=== PATIENT | female | born 1965 | race Hispanic/Latino ===

== ENCOUNTER 2016-12-03 07:40 | Emergency (ER) | payer BC ==
[2016-12-03 07:58] VITALS: BP 150/65; PULSE 104; RESP 16; TEMP 97; O2SAT 94
[2016-12-03] MEDS ORDERED: Albuterol-Ipratrop 3 mg / 0.5 (3 ml) UD INH STA (08:24)
[2016-12-03] MEDS ORDERED: Albuterol-Ipratrop 3 mg / 0.5 (3 ml) UD ONE (08:27)
--- NOTE | 2016-12-03 08:28 | ED PDOC ---
HPI: Psych/Substance Abuse Time Seen by Provider: 12/03/16 07:56 Chief Complaint (Nursing): Substance Abuse ED Caveat: Acuity of Condition History Per: Patient History/Exam Limitations: no limitations Onset/Duration Of Symptoms: Sudden Onset Current Symptoms Are (Timing): Gone Now Suicide/Self Injury Attempted (Context): None Modifying Factor(s): None Severity: Moderate Associated Symptoms: denies: Anger, Anxiety, Agitation, Depression, Paranoia, Suicidal Thoughts, Suicidal Plan Involuntary Hold By: None Additional History Per: Patient Additional Complaint(s): Pt brought in by ambulance accompanied by spouse from home. As per EMS, pt was found unresponsive at home. Patients spouse states he woke up and saw she was no responsive and called ambulance. As per report from EMS, patient had constricted pupils and was given 0.4mg narcan and became responsive. Patient arrives AOX3, with no complaints. Patient states she wants to go home. Pt denies Substance abuse. no acute resp. distress noted. pt states she is now having an asthma excaerbation with mild sob. pt admit to taking 2 percocets today for her back apin Against Medical Advice - AMA Patient Left Against Medical Advice: The patient declines admission to the hospital and wishes to leave the Emergency Department. This action is against my medical advice. This decision was made with informed refusal. The patient was told that admission to the hospital is necessary. Explanation of the reasons why were discussed. The risks of leaving were explained to the patient and include, but are not limited to, worsening of known or currently unknown conditions, permanent disability and from undiagnosed or untreated conditions. The patient has the capacity to make this informed decision and understands my explanation of the current medical problem and risks of leaving. The patient voluntarily accepts these risks and signed an AMA form documenting our conversation. The patient was given the opportunity to ask questions and reconsider. The patient was encouraged to return to the Emergency Department at any time for further care. Past Medical History Reviewed: Historical Data, Nursing Documentation, Vital Signs Vital Signs: Last Vital Signs Temp 97.0 F L 12/03/16 07:52 Pulse 104 H 12/03/16 07:52 Resp 16 12/03/16 07:52 BP 150/65 12/03/16 07:52 Pulse Ox 94 L 12/03/16 07:52 - Medical History PMH: Asthma - Family History Family History: States: Unknown Family Hx - Living Arrangements Living Arrangements: With Family - Social History Current smoker - smoking cessation education provided: No Drugs: Denies - Home Medications Home Medications: Ambulatory Orders Medication Instructions Recorded Albuterol HFA [Ventolin HFA 90 2 puff IH [id number] PRN #60 puff 12/03/16 mcg/actuation (8 g)] Methylprednisolone [Medrol Dose 4 mg PO DAILY #21 mg 12/03/16 Pack (21 tabs)] - Allergies Allergies/Adverse Reactions: Allergies Allergy/AdvReac Type Severity Reaction Status Date / Time No Known Allergies Allergy Verified 12/03/16 07:52 Review of Systems ROS Statement: Except As Marked, All Systems Reviewed And Found Negative Constitutional: Negative for: Fever, Chills Cardiovascular: Negative for: Chest Pain, Palpitations Respiratory: Positive for: Cough. Negative for: Shortness of Breath, Sputum Gastrointestinal: Negative for: Nausea, Vomiting, Abdominal Pain Genitourinary Female: Negative for: Dysuria Musculoskeletal: Negative for: Neck Pain Neurological: Negative for: Weakness, Numbness Physical Exam - Reviewed Nursing Documentation Reviewed: Yes Vital Signs Reviewed: Yes - Physical Exam Appears: Positive for: Uncomfortable Head Exam: Positive for: ATRAUMATIC, NORMAL INSPECTION, NORMOCEPHALIC Eye Exam: Positive for: Normal appearance, EOMI, PERRL Neck: Positive for: Normal, Painless ROM, Supple Cardiovascular/Chest: Positive for: Regular Rate, Rhythm, Chest Non Tender. Negative for: Edema Respiratory: Positive for: Wheezing (mild scattered). Negative for: Decreased Breath Sounds, Accessory Muscle Use, Crackles, Rales, Rhonchi, Stridor Gastrointestinal/Abdominal: Positive for: Normal Exam, Bowel Sounds, Soft. Negative for: Tenderness Back: Positive for: Normal Inspection. Negative for: L CVA Tenderness, R CVA Tenderness Extremity: Positive for: Normal ROM. 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 Negative for: Motor/Sensory Deficits - ECG O2 Sat by Pulse Oximetry: 94 Pulse Ox Interpretation: Abnormal - Radiology X-Ray: Interpreted by Me X-Ray Interpretation: No Acute Disease - Progress ED Course And Treament: pt will leave ama refuses all treatment pt explained and understands the risks Disposition - Clinical Impression Clinical Impression: Opiate overdose, Acute bronchospasm - Patient ED Disposition Is Patient to be Admitted: No - Disposition Referrals: [facility] [place] [Outside] Disposition: Against Medical Advice Disposition Time: 08:45 Condition: STABLE Prescriptions: Albuterol HFA [Ventolin HFA 90 mcg/actuation (8 g)] 2 puff IH [id number] PRN #60 puff PRN Reason: Wheezing Methylprednisolone [Medrol Dose Pack (21 tabs)] 4 mg PO DAILY #21 mg Instructions: Asthma (ED), Narcotic Abuse (ED) Forms: [employer] (Slovak)
--- NOTE | 2016-12-03 09:50 | RAD ---
PROCEDURE: CHEST RADIOGRAPH, 1 VIEW HISTORY: cp COMPARISON: Correlation made with plain film radiographs of the cervical spine 05/18/2009 which image the lung apices. . FINDINGS: LUNGS: Clear. PLEURA: No pneumothorax or pleural fluid seen. CARDIOVASCULAR: Normal. OSSEOUS STRUCTURES: No significant abnormalities. VISUALIZED UPPER ABDOMEN: Normal. OTHER FINDINGS: Re- demonstrated is the rounded radiopaque density that exhibits peripheral shell like calcification overlying the left anterior 1st rib measuring approximately 10.4 mm. This could represent soft tissue calcification. This focus is stable since prior study 05/18/2009. Nonemergent CT scan of the chest could be performed further evaluation however IMPRESSION: No acute infiltrates. Radiopaque calcific density left upper lung field overlying the left anterior 1st rib unchanged since prior study as above. This could represent soft tissue calcification. Consider followup nonemergent CT scan of the chest for further evaluation.
== END 2016-12-03 09:26 | disposition home or self-care (01) ==
LOC: H.ER 07:40
DX: J45.909 Unspecified asthma, uncomplicated (principal); T40.601A Poisoning by unspecified narcotics, accidental (unintentional), initial encounter